=== PATIENT | male | born 1990 | race African-American/Black ===

== ENCOUNTER 2018-05-23 01:43 | Emergency (ER) | payer OTHER ==
[2018-05-23 02:02] VITALS: BP 102/51
[2018-05-23] MEDS ORDERED: TYLENOL ONE (03:07)
[2018-05-23] MEDS ORDERED: TYLENOL PO ONE (03:08)
[2018-05-23] MEDS ORDERED: NORCO 5/325 ONE (04:48)
[2018-05-23] MEDS ORDERED: NORCO 5/325 PO ONE (04:52)
--- NOTE | 2018-05-23 05:27 | Emergency Department Report ---
ED ENT HPI - General Chief complaint: Dental/Oral Stated complaint: TOOTHACHE Time Seen by Provider: 05/23/18 05:23 Source: patient Mode of arrival: Ambulatory Limitations: No Limitations - History of Present Illness Initial comments: Patient presents for dental pain 2 weeks history of same last year . Root canal on prior round of pain medication no antibiotics patient states pain is 4/10 aching exacerbated by hot and cold sensation is no fever no chills no throat no ear pain MD complaint: tooth pain Onset/Timin -: week(s) Location: tooth # (15) Severity: moderate Severity scale (0 -10): 5 Quality: aching Consistency: constant Improves with: other (hydrocodone ) Worsens with: other (hot cold stimuli ) Context- Dental: history of dental caries Associated Symptoms: toothache. denies: cough, pain with swallowing, sore throat, tinnitus, hearing loss, discharge from ear, rhinorrhea - Related Data Previous Rx's Medication Instructions Recorded Last Taken Type traMADol [Ultram 50 MG tab] 50 mg PO Q6HR PRN #15 tablet 07/02/15 Unknown Rx Amoxicillin 500 mg PO TID #30 capsule 05/23/18 Unknown Rx Chlorhexidine Mouthwash [Peridex] 15 ml MM BID #1 bottle 05/23/18 Unknown Rx traMADol [Ultram] 50 mg PO Q8HR PRN #15 tablet 05/23/18 Unknown Rx Allergies Allergy/AdvReac Type Severity Reaction Status Date / Time No Known Allergies Allergy Verified 07/02/15 17:19 ED Dental HPI - General Chief complaint: Dental/Oral Stated complaint: TOOTHACHE Time Seen by Provider: 05/23/18 05:23 Source: patient Mode of arrival: Ambulatory Limitations: No Limitations - Related Data Previous Rx's Medication Instructions Recorded Last Taken Type traMADol [Ultram 50 MG tab] 50 mg PO Q6HR PRN #15 tablet 07/02/15 Unknown Rx Amoxicillin 500 mg PO TID #30 capsule 05/23/18 Unknown Rx Chlorhexidine Mouthwash [Peridex] 15 ml MM BID #1 bottle 05/23/18 Unknown Rx traMADol [Ultram] 50 mg PO Q8HR PRN #15 tablet 05/23/18 Unknown Rx Allergies Allergy/AdvReac Type Severity Reaction Status Date / Time No Known Allergies Allergy Verified 07/02/15 17:19 ED Review of Systems ROS: Stated complaint: TOOTHACHE Other details as noted in HPI Constitutional: denies: chills, fever Eyes: denies: eye pain, eye discharge, vision change ENT: dental pain Respiratory: denies: cough, shortness of breath, wheezing Cardiovascular: denies: chest pain, palpitations Endocrine: no symptoms reported Gastrointestinal: denies: abdominal pain, nausea, diarrhea Genitourinary: denies: urgency, dysuria Musculoskeletal: denies: back pain, joint swelling, arthralgia Skin: denies: rash, lesions Neurological: denies: headache, weakness, paresthesias Psychiatric: denies: anxiety, depression Hematological/Lymphatic: denies: easy bleeding, easy bruising ED Past Medical Hx - Past Medical History Previous Medical History?: Yes Hx Kidney Stones: Yes - Surgical History Past Surgical History?: Yes Additional Surgical History: TONSILLECTOMY. SINUS SURGERY - Social History Smoking Status: Current Every Day Smoker Substance Use Type: None - Medications Home Medications: Home Medications Medication Instructions Recorded Confirmed Last Taken Type traMADol [Ultram 50 MG tab] 50 mg PO Q6HR PRN #15 tablet 07/02/15 Unknown Rx Amoxicillin 500 mg PO TID #30 capsule 05/23/18 Unknown Rx Chlorhexidine Mouthwash [Peridex] 15 ml MM BID #1 bottle 05/23/18 Unknown Rx traMADol [Ultram] 50 mg PO Q8HR PRN #15 tablet 05/23/18 Unknown Rx ED Physical Exam - General Limitations: No Limitations General appearance: alert, in no apparent distress - Head Head exam: Present: atraumatic, normocephalic - Eye Eye exam: Present: normal appearance, PERRL, EOMI Pupils: Present: normal accommodation - ENT ENT exam: Present: mucous membranes moist - Expanded ENT Exam Expanded Teeth exam: Present: dental caries, dental tenderness # (15). Absent: gingival enlargement Throat exam: Positive: normal inspection. Negative: tonsillar erythema, tonsillomegaly, tonsillar exudate - Neck Neck exam: Present: normal inspection - Respiratory Respiratory exam: Present: normal lung sounds bilaterally. Absent: respiratory distress - Cardiovascular Cardiovascular Exam: Present: regular rate, normal rhythm. Absent: systolic murmur, diastolic murmur, rubs, gallop - GI/Abdominal GI/Abdominal exam: Present: soft, normal bowel sounds - Rectal Rectal exam: Present: deferred - Extremities Exam Extremities exam: Present: normal inspection - Back Exam Back exam: Present: normal inspection - Neurological Exam Neurological exam: Present: alert - Psychiatric Psychiatric exam: Present: normal affect, normal mood - Skin Skin exam: Present: warm ED Course Vital Signs 05/23/18 01:41 Temperature 97.9 F Pulse Rate 49 L Respiratory 18 Rate Blood Pressure 102/51 O2 Sat by Pulse 99 Oximetry ED Medical Decision Making - Medical Decision Making Infected dental caries #15 , gum or facial swelling no focal abscess patient has follow-up with dentist in 3 days plan amoxicillin. peridex, ultram follow with dentist in 2-3 days as scheduled patient verbalized understanding and agreed with discharge plan will be DC'd home in stable condition at this time Critical care attestation.: If time is entered above; I have spent that time in minutes in the direct care of this critically ill patient, excluding procedure time. ED Disposition Clinical Impression: Infected dental caries Disposition: DC-01 TO HOME OR SELFCARE Is pt being admited?: No Does the pt Need Aspirin: No Condition: Good Instructions: Dental Caries (ED) Prescriptions: Amoxicillin 500 mg PO TID #30 capsule Chlorhexidine Mouthwash [Peridex] 15 ml MM BID #1 bottle traMADol [Ultram] 50 mg PO Q8HR PRN #15 tablet PRN Reason: Pain Referrals: DANI ARNOLD MD [Primary Care Provider] - 3-5 Days Forms: Work/School Release Form(ED) Time of Disposition: 05:29
== END 2018-05-23 05:30 | disposition home or self-care (01) ==
LOC: ED 01:43
DX: K04.7 Periapical abscess without sinus (principal); F17.200 Nicotine dependence, unspecified, uncomplicated
CPT/HCPCS: 99282